=== PATIENT | male | born 1950 | race Caucasian/White ===

== ENCOUNTER 2016-07-17 17:30 | Emergency (ER) | payer MEDICARE ==
[2016-07-17 18:46] VITALS: TEMP 97.8; BMI 36.0
[2016-07-17] MEDS ORDERED: ONDANSETRON HCL 4 MG/2 ML VIAL IV ONE (18:48)
[2016-07-17] MEDS ORDERED: MORPHINE 4 MG/ML INJECTION IV ONE ×2 (18:48→20:27)
[2016-07-17] MEDS ORDERED: SODIUM CHLORIDE 0.9% 10 ML FLUSH FLUSH PRN (18:48)
--- NOTE | 2016-07-17 19:10 | EDPRACDOC ---
- General Information Chief Complaint: Ankle Pain Stated Complaint: FALL (RT LEG INJURY) Time Seen by Provider: 07/17/16 19:07 Information Source: Patient Mode of Arrival: Car Home Medications: Home Medications Aspirin (Enteric Coated) [Halfprin] 81 mg PO DAILY 10/29/14 Citalopram Hydrobromide [Celexa] 20 mg PO DAILY 10/29/14 Levetiracetam [Keppra] 500 mg PO BID 10/29/14 [place]-3 Fatty Acids/Fish Oil [Fish Oil 1,000 mg Softgel] 1 cap PO BID 10/29/14 Omeprazole 20 mg PO DAILY 10/29/14 Atenolol [Tenormin] 50 mg PO DAILY 11/07/15 Hydrochlorothiazide 25 mg PO DAILY 11/07/15 Tizanidine HCl [Zanaflex] 4 mg PO TID 11/07/15 Oxycodone Immediate Release [Oxycodone Immediate Release (OxyIR)] 5 - 15 mg PO Q4H PRN #30 tab 07/17/16 Allergies/Adverse Reactions: Allergies Allergy/AdvReac Type Severity Reaction Status Date / Time No Known Allergies Allergy Verified 07/17/16 18:45 - History of Present Illness Onset: 1430 HPI: SLIPPED AND FELL ON THE ICE, HIS RIGHT LEG FELL UNDERNEATH HIM HE LANDED ON IT WITH HIS WEIGHT IMMEDIATE PAIN AND DEFORMITY TO THE RIGHT ANKLE IT JUST POPS AROUND PATIENT LAID OUTSIDE FOR APPROXIMATELY 30 MINUTES CRAWL TO HOWEVER FOR HE FOUND HELP. PAIN IN HIS ANKLE NO PAIN IN HIS LEG KNEE HIP OR BACK. ED Past Medical History - History Reviewed Yes Nurses notes reviewed and agree except as marked - Patient Medical History Neurological History: Reports: Seizures (Last grand mall seizure over 5 years ago.) Cardiac History: Reports: Hypertension, Hypercholesterolemia Psychological History: Denies: Substance Use Disorder Systemic History: Denies: Diabetes, Hypothyroidism - Family Medical History Reports: Cancer (Sister with breast cancer, sister with bowel cancer, daughter with melanoma), Stroke (Mother at age 34 due to brain hemorrhage (details unknown).), Cardiac Disorders (Father with coronary artery disease and CHF.) - Social Medical History Smoking Status: Former smoker Social History: Denies: Substance Use Disorder ETOH: None Substance Abuse: None Lives In: Home EDM Review of Systems - Review of Systems ROS Negative Except as Marked: Yes All systems reviewed and were negative except as marked - Physical Exam Constitutional: Alert, Distress (UNCOMFORTABLE SECONDARY TO PAIN IN HIS RIGHT FOOT) Oriented to: Time, Person, Place Last recorded Vital Signs: Last Vital Signs Temp 97.8 F 07/17/16 18:45 Pulse 64 07/17/16 18:45 Resp 20 07/17/16 18:45 BP 177/83 07/17/16 18:45 Pulse Ox 96 07/17/16 18:45 Oxygen Pulse Oxygen Saturation 96 O2 Device Oxygen Flow Rate Fraction of Inspired Oxygen ( FIO2) - HEENT Head: Normal. negative: Laceration, Swelling, Tender Neck: Normal. negative: Bony Tenderness, Paraspinal Tenderness - Respiratory/Cardiovascular Respiratory: Normal - CTA Cardiovascular: Normal - GI Tenderness: Non tender - Musculoskeletal Extremities: Other (RIGHT FOOT NORMAL NONTENDER PALPATION AND FOREFOOT MIDFOOT AND HINDFOOT. DORSALIS PEDIS AND POSTERIOR TIBIALIS PULSES 2+ SENSATION IS NORMAL OVER THE LATERAL MIDDLE AND MEDIAL FOOT. RIGHT ANKLE OBVIOUS DEFORMITY SOME SOFT TISSUE SWELLING BUT NO SOFT TISSUES TENTING. TIB-FIB, KNEE, FEMUR, HIP NONTENDER PALPATION GOOD RANGE OF MOTION.) - Neurologic Memory Impaired: Normal Mood Description: Normal, Appropriate Thought: Coherent ED Procedures - Splinting 1st splint Location: RIGHT LOWER EXTREMITY Hand-Made Type: orthoglass Splint: POSTERIOR SHORT LEG Pre-Proc Neuro Vasc Exam: normal Post-Proc Neuro Vasc Exam: normal Other Devices: Crutches 2nd splint Location: R LOWER EXT Hand-Made Type: orthoglass Splint: POSTERIOR SHORT LEG - SECOND APPLICATION Pre-Proc Neuro Vasc Exam: normal Post-Proc Neuro Vasc Exam: normal Other Devices: Crutches 3rd splint Location: RIGHT LOWER EXT Hand-Made Type: orthoglass Splint: sugar-tong (SECOND APPLICATION) Pre-Proc Neuro Vasc Exam: normal Post-Proc Neuro Vasc Exam: normal - Fracture/Dislocation Reduction Informed of risks, benefits and alternatives described.: Yes Informed Consent Signed: Written Indication: Dislocation, Fracture Attempted reduction was performed: Yes Reduction Attempts: 1 Sedation performed under my direct supervision See flowsheet: Yes Intra-articular anesthetic was placed: Yes Joint Reduction Site: Other (RIGHT ANKLE) Shoulder Reduction was performed by: Traction-Counteraction (WITH HIP KNEE AND ANKLE AT 90) Post Reduction radiographs showed: Joint Reduced, Acceptable Alignment - Arthrocentesis Informed of risks, benefits and alternatives described: Yes Informed Consent Signed: Verbal Indication: Pain Control, Intra-articular Injection (LIDOCAINE WITH EPI) Prep: Chlorhexadine Prep Needle/Catheter was inserted into: Other (RIGHT ANKLE) - Results 07/17/16 19:40 07/17/16 19:40 - EKG EKG #1 EKG Time: 19:29 -: Yes EKG interpreted by me Rate: bpm: 65 [place]berg: Normal Rhythm: NSR Block: None Hypertrophy: None ST: Normal - Diagnostic Imaging Ankle Image interpreted by: , Radiologist Patient Name: WARREN TROY LOC: ED : 1950 AGE: 65 Order Date:07/17/16 Date of Service:02/23 Report # [id number] Ord Physician: Marychuy Lees MD Exam # [id number] Emergency Physician: Marychuy Lees MD Exam(s): [id number] RAD/DG ANKLE COMPLETE 3+V-R CLINICAL DATA: Status post slip and fall on the ice this evening. Right ankle injury and pain. Initial encounter. EXAM: RIGHT ANKLE - COMPLETE 3+ VIEW COMPARISON: None. FINDINGS: The patient has medial, lateral and posterior malleolar fractures. There is mild posterior and lateral subluxation of the talus at the tibiotalar joint. Soft tissue swelling is present about the ankle. Calcaneal spurring is noted. IMPRESSION: Acute medial, lateral and posterior malleolar fractures with mild posterior and lateral subluxation of the talus. Electronically Signed By: Jose Roberto Salinas M.D. On: 07/17/2016 19:30 Electronically Signed By: Jose Roberto Marin MD Electronically Signed Date/Time: [id number] Dictate Date/Time: 07/17/161927 Technologist: Doris Calvo Transcribed By: Misti Transcribed Date/Time: 07/17/161929 Leg Image interpreted by: Radiologist Patient Name: WARREN TROY LOC: ED : 1950 AGE: 65 Order Date:07/17/16 Date of Service:02/23 Report # [id number] Ord Physician: Lyric Banerjee Exam # [id number] Emergency Physician: Marychuy Lees MD Exam(s): [id number] RAD/DG TIBIA/FIBULA 2V-R CLINICAL DATA: Fell on ice this evening, lower leg pain on the right EXAM: RIGHT TIBIA AND FIBULA - 2 VIEW COMPARISON: None. FINDINGS: Mildly displaced oblique fracture distal shaft of the fibula. Moderately displaced fracture of the medial malleolus of the tibia. Mildly displaced fracture posterior malleolus suspected. Refer to report of ankle for details. IMPRESSION: Fractures of the distal tibia and fibula likely a trimalleolar fracture. Electronically Signed By: Tono Antonio M.D. On: 07/17/2016 19:31 Electronically Signed By: Tono Antonio MD Electronically Signed Date/Time: Dictate Date/Time: 07/17/161928 Technologist: Doris Calvo Transcribed By: IRINATran Transcribed Date/Time: 07/17/161930 Knee Image interpreted by: Radiologist Patient Name: WARREN TROY LOC: ED : 1950 AGE: 65 Order Date:07/17/16 Date of Service:02/23 Report # [id number] Ord Physician: Lyric Banerjee Exam # [id number] Emergency Physician: Marychuy Lees MD Exam(s): [id number] RAD/DG KNEE COMPLETE 4+V-R CLINICAL DATA: Slip and fall with right knee pain, initial encounter EXAM: RIGHT KNEE - COMPLETE 4+ VIEW COMPARISON: None. FINDINGS: No acute fracture or dislocation is noted. Prominent osteophytes are noted from the tibial tubercle. No gross soft tissue abnormality is seen. IMPRESSION: No acute abnormality noted. Electronically Signed By: Francisco Javier Anderson M.D. On: 07/17/2016 19:37 Electronically Signed By: Francisco Javier Anderson MD Electronically Signed Date/Time: Dictate Date/Time: 07/17/161933 Technologist: Doris Calvo Transcribed By: IRINATran Transcribed Date/Time: 07/17/16 1937 - Departure Disposition: Home Final Diagnosis: Trimalleolar fracture of ankle, closed Qualifiers: Encounter type: initial encounter Laterality: right Qualified Code(s): S82.851A - Displaced trimalleolar fracture of right lower leg, initial encounter for closed fracture Accidental fall Qualifiers: Encounter type: initial encounter Qualified Code(s): W19.XXXA - Unspecified fall, initial encounter Instructions: RICE: Routine Care for Injuries, Fall Prevention for Older Adults (ED), Ankle Fracture (ED) Education/Counseling Given To: Patient, Family Member Education/Counseling Given Regarding: Diagnosis, Treatment, Prognosis Referrals: Segundo Rey MD [Staff Physician] - 1-2 days Prescriptions: Oxycodone Immediate Release [Oxycodone Immediate Release (OxyIR)] 5 - 15 mg PO Q4H PRN #30 tab PRN Reason: Pain - Physician Consulted Orthopedics Time Called: 20:00 Provider Called: Segundo Rey ORTHO 2 Time Called: 22:00 Provider Called: Nilay Judd Time Business Unit Controller Returned Call: 22:00 (REDUCE AND SEND TO CLINIC) ED-Moderate Sedation Procedure - Procedure Informed of risks, benefits and alternatives described.: Yes Informed Consent Signed: Written ASA Status: 2 Procedure Type: FRACTURE REDUCTION - Patient Information Patient Age: 65 History and Physical Completed: Yes - Tag Marker Tag Marker: Yes EKG Rhythm: Sinus Rhythm - Medications Dose #1 Administration Time: 22:54 Medication Given: Propofol Dose Given: 100 Medication Unit: mg Route: IV Patient Reaction: Sleeping
--- NOTE | 2016-07-17 19:32 | DIRPT ---
CLINICAL DATA: Status post slip and fall on the ice this evening. Right ankle injury and pain. Initial encounter. EXAM: RIGHT ANKLE - COMPLETE 3+ VIEW COMPARISON: None. FINDINGS: The patient has medial, lateral and posterior malleolar fractures. There is mild posterior and lateral subluxation of the talus at the tibiotalar joint. Soft tissue swelling is present about the ankle. Calcaneal spurring is noted. IMPRESSION: Acute medial, lateral and posterior malleolar fractures with mild posterior and lateral subluxation of the talus. Electronically Signed By: Jose Roberto Salinas M.D. On: 07/17/2016 19:30
--- NOTE | 2016-07-17 19:33 | DIRPT ---
CLINICAL DATA: Fell on ice this evening, lower leg pain on the right EXAM: RIGHT TIBIA AND FIBULA - 2 VIEW COMPARISON: None. FINDINGS: Mildly displaced oblique fracture distal shaft of the fibula. Moderately displaced fracture of the medial malleolus of the tibia. Mildly displaced fracture posterior malleolus suspected. Refer to report of ankle for details. IMPRESSION: Fractures of the distal tibia and fibula likely a trimalleolar fracture. Electronically Signed By: Tono Antonio M.D. On: 07/17/2016 19:31
--- NOTE | 2016-07-17 19:40 | DIRPT ---
CLINICAL DATA: Slip and fall with right knee pain, initial encounter EXAM: RIGHT KNEE - COMPLETE 4+ VIEW COMPARISON: None. FINDINGS: No acute fracture or dislocation is noted. Prominent osteophytes are noted from the tibial tubercle. No gross soft tissue abnormality is seen. IMPRESSION: No acute abnormality noted. Electronically Signed By: Francisco Javier Anderson M.D. On: 07/17/2016 19:37
[2016-07-17 19:56] LABS: AUTOMATED BASOPHIL 0.5 % (0-2); AUTOMATED EOSINOPHIL 0.4 % (0-5); AUTOMATED MONOCYTE 5.7 % (3-10); AUTOMATED NEUTROPHIL 81.4 % (45-76); MPV 9.6 fL (7.4-10.4)
--- NOTE | 2016-07-17 21:27 | DIRPT ---
CLINICAL DATA: Post splinting right ankle fracture EXAM: PORTABLE RIGHT ANKLE - 2 VIEW COMPARISON: Films performed earlier this evening FINDINGS: No change fracture distal fibula. No change fracture medial malleolus. Mortise remains disrupted. Lateral view demonstrates no change in fracture involving posterior malleolus. There remains mild posterior and lateral subluxation of the talus at the tibiotalar joint. IMPRESSION: Unchanged trimalleolar fracture Electronically Signed By: Tono Antonio M.D. On: 07/17/2016 21:24
[2016-07-17] MEDS ORDERED: PROPOFOL 200 MG/20 ML VIAL IV ONE ×2 (22:44→23:16)
--- NOTE | 2016-07-18 00:07 | DIRPT ---
CLINICAL DATA: 65-year-old male with postreduction of the distal right lower extremity fractures. EXAM: PORTABLE RIGHT ANKLE - 2 VIEW COMPARISON: Radiograph dated 07/17/2016 FINDINGS: There has been interval reduction of the previously seen fractures of the distal fibula and medial malleolus. Near anatomic alignment. There is anatomic alignment of the ankle joint. There is soft tissue swelling of the ankle. The cast is noted over the ankle. IMPRESSION: Interval reduction of the previously seen fractures of the distal fibula and medial malleolus with anatomic alignment of the ankle joint. Electronically Signed By: Loki Wilson M.D. On: 07/18/2016 00:04
[2016-07-18 00:51] VITALS: PULSE 66
[2016-07-18 00:52] VITALS: BP 172/83
== END 2016-07-18 00:35 | disposition home or self-care (01) ==
LOC: ED 17:30
DX: S82.851A Displaced trimalleolar fracture of right lower leg, initial encounter for closed fracture (principal); W00.0XXA Fall on same level due to ice and snow, initial encounter; I10 Essential (primary) hypertension; E78.00 Pure hypercholesterolemia, unspecified; Z79.899 Other long term (current) drug therapy
CPT/HCPCS: 27818; 73564; 73590; 73600; 73610; 85025; 93005; 96374; 96375; 96376; 99152; 99284; J2270; J2405; J3490; 80048

== ENCOUNTER → 2016-07-20 | Day surgery (SDC) | payer MEDICARE ==
[2016-07-17 18:46] VITALS: BMI 36.0
[~2016-07-20] MED LIST: BUPIVACAINE 0.5% 30 ML VIAL ONE; CEFAZOLIN 1 GM VIAL ONE; DIPHENHYDRAMINE 50 MG/ML VIAL IV ONE; DIPHENHYDRAMINE 50 MG/ML VIAL ONE; FENTANYL 100 MCG/2 ML VIAL IV PRN; FENTANYL 100 MCG/2 ML VIAL ONE; HYDROmorphone 1 MG INJECTION IV PRN; HYDROmorphone 1 MG INJECTION ONE; LABETALOL 20 MG/4 ML SYRINGE IV PRN; LIDOCAINE 1% 30 ML VIAL (PRESERVATIVE FREE) ONE; MEPERIDINE 25 MG/ML TUBEX IV PRN; ONDANSETRON HCL 4 MG ODT TAB PO PRN; ONDANSETRON HCL 4 MG/2 ML VIAL IV PRN; TRIAMCINOLONE 40 MG/ML VIAL ONE; hydrALAZINE 20 MG/ML VIAL ONE
--- NOTE | 2016-07-20 13:28 | HIM.ANES ---
Anesthesia Evaluation & Plan Diagnoses: OTH FRACTURE OF RIGHT LOWER LEG, INIT FOR CLOS FX (07/20/16) Consented Procedure: OPEN REDUCTION INTERNAL FIXATION RIGHT TRIMALLEOLAR FRACTURE AND OTHE PROCEDURES INDICATED - Focused Review of Systems Cardiac History: Yes: Hx Hypertension, Hx Abnormal Cholesterol/Hyperlipidemia HEENT: Yes: Hx Hearing Impairment (WEARS HEARING AIDS), Hx Vision Problem ( WEARS GLASSES) Hx Other HEENT Surgery: NASAL SURGERY Respiratory: Yes: Hx Sleep Apnea (PT STATES HE THINKS R/T UNCONTROLLED SEIZURES. DOES NOT USE APPLIANCE), Hx Snoring Gastrointestinal: Yes: Hx Gastroesophageal Reflux Disease, Hx Colonoscopy, Hx Endoscopy Neurological/Musculoskeletal: Yes: HX Cerebrovascular Accident (10/2015), Hx Seizures (Last [place] seizure over 5 years ago.), Hx Head Trauma, Hx Back Pain Other Neurological Problems: SEIZURES Psychological: No Hx Depression, No Hx Mental/Emotional Disorders Endocrine: No: Hx Hypothyroidism Blood/Autoimmune: No: Hx AIDS, Hx Hepatitis (type) Smoking Status: Former smoker Past Social History: Denies: Substance Use Disorder Hx Stress Test (date): Yes Other Surgical History: NASAL SURGERY - Focused Physical Exam NPO since: 07/19/162029 Mallampati: Class II Thyromental Distance: Greater than 3 Neck: Full Range of Motion Dental: Removable Dental Work Cardiovascular/Chest: Normal Respiratory: Lungs clear Any problems with anesthesia, including nausea and vomiting?: No Any relatives with a history of Malignant Hyperthermia?: No Does patient have a history of Malignant Hyperthermia?: No Beta Niesha given (if appropriate): No Does the patient have a history of Motion Sickness-: No Other: Problem List Problem Status Onset Accidental fall Acute Arm paresthesia, left Acute CVA (cerebral vascular accident) Acute Hypokalemia Acute Trimalleolar fracture of ankle, closed Acute Hypercholesteremia Chronic Hypertension Chronic Allergies Allergy/AdvReac Type Severity Reaction Status Date / Time No Known Allergies Allergy Verified 07/17/16 18:45 Home Medications Medication Instructions Recorded Last Taken Type Aspirin (Enteric Coated) [Halfprin] 81 mg PO DAILY 10/29/14 07/19/16 10:00 History Citalopram Hydrobromide [Celexa] 20 mg PO DAILY 10/29/14 07/19/16 10:00 History Levetiracetam [Keppra] 500 mg PO BID 10/29/14 07/20/16 10:15 History [place]-3 Fatty Acids/Fish Oil [Fish 1 cap PO BID 10/29/14 11/09/15 08:00 History Oil 1,000 mg Softgel] Omeprazole 20 mg PO DAILY 10/29/14 07/19/16 10:00 History Atenolol [Tenormin] 50 mg PO DAILY 11/07/15 07/19/16 10:00 History Hydrochlorothiazide 25 mg PO DAILY 11/07/15 07/19/16 10:00 History Tizanidine HCl [Zanaflex] 4 mg PO DAILY 11/07/15 07/19/16 22:00 History Oxycodone Immediate Release 5 - 15 mg PO Q4H PRN #30 tab 07/17/16 07/19/16 22: 00 Rx [Oxycodone Immediate Release (OxyIR)] Height and Weight Patient's height 5 ft 7 in Patient's weight 104.326 kg BMI 36.0 Vital Signs Temperature 98.6 F 07/20/16 12:58 Pulse Rate 70 07/20/16 12:58 Respiratory Rate 18 07/20/16 12:58 Blood Pressure 162/76 07/20/16 12:58 Pulse Oxygen Saturation 95 07/20/16 12:58 METS - Level of Activity: Climbing stairs(1 flight),walking level ground, running short distance - Anesthetic Plan Anesthesia Type: General ASA Class: 3 -: I have examined this patient and reviewed the medical record. The patient has been assessed prior to anesthesia. Risks and benefits of anesthesia and anesthetic technique options have been discussed and all questions answered. The patient accepts the risk and desires me to proceed with the planned anesthetic.
--- NOTE | 2016-07-20 16:47 | HIMOPRPT ---
DATE OF PROCEDURE: 07/20/16 PREOPERATIVE DIAGNOSIS: Right ankle trimalleolar fracture dislocation. POSTOPERATIVE DIAGNOSIS: Right ankle trimalleolar fracture distal. PROCEDURE PERFORMED: Open reduction and internal fixation, right ankle lateral malleolar fracture. Open reduction internal fixation right ankle medial malleolus SURGEON: Segundo Rey MD. REVERSE ENGINEER: UNIQUE Fagan ANESTHESIA: General endotracheal Anesthesia. IV FLUIDS: Crystalloids ESTIMATED BLOOD LOSS: Minimal TOURNIQUET TIME: 100 minutes. SPECIMENS: None. COMPLICATIONS: None. IMPLANTS: [place] periarticular locking 6-hole plate for fixation of lateral malleolus. Two cannulated screws measuring 55 and 65 mm long and 5 mm in diameter were used for fixation of medial malleolus.. BRIEF HISTORY: WARREN TROY is a 65 year-old M patient. Patient had a fall on ice. He sustained a right ankle fracture dislocation and presented in the ER. He underwent closed reduction under sedation. Based on that, a decision was made for open reduction and internal fixation. The patient understood that the risks involved in surgery include infection, development of posttraumatic arthritis, DVT, pulmonary embolism, implant failure, need for further surgery, continued pain, pulmonary embolism, stroke, and even . The patient volunteered an informed consent. The patient was seen on the day of surgery in preop holding area. Surgical site was marked. The patient was then wheeled back into the operating room. DESCRIPTION OF THE PROCEDURE: The patient was placed supine on the operating table. Anesthesia was administered. Proper timeout was performed, 2 g of IV Ancef was given. Tourniquet above the knee was applied. Right lower extremity was prepped and draped. We started with percutaneous reduction of the medial malleolus and fixation with cannulated screws. Reduction was confirmed under AP and lateral C-arm images. We then placed 2 guidewires for cannulated screws 5 mm in diameter from the tip of the medial malleolus into the distal tibia. Two screws were placed 55 and 65 mm long. We then proceeded with the fixation of the lateral malleolus. Posterolateral incision was made. The fracture site was exposed. There was early callus formation at the fracture site. This callus was taken down. Both fragments were mobilized. It was a spiral fracture, which was fixed with an anterior-posterior locking lag screw. This was followed by application of a 4-hole periarticular Cristhian locking plate. This was fixed initially to the bone with a nonlocking screw. This was followed by application of both locking and nonlocking screws through the proximal and distal fragment. The tourniquet was released. Hemostasis was achieved. The wound was closed in layers. A double sugar-tong splint was applied. The patient tolerated the procedure very well and was taken to the recovery room in stable condition. DISPOSITION: The patient would be discharged home today. The patient would be nonweightbearing on the right lower extremity. The patient will follow up in the clinic in 2 weeks for removal of stitches.
[2016-07-20] MEDS: hydrALAZINE 20 MG/ML VIAL IV PRN ×3 (17:15→17:40)
[2016-07-20] MEDS: LABETALOL 20 MG/4 ML SYRINGE IV ONE ×4 (18:02→18:23)
[2016-07-20 20:09] VITALS: TEMP 98.5
[2016-07-20 20:25] VITALS: BP 173/79
[2016-07-20 20:51] VITALS: PULSE 97
== END ==
LOC: SDC 12:25
PROVIDERS: ATTEND Orthopaedic Surgery
PROC: 0QSG04Z Reposition Right Tibia with Internal Fixation Device, Open Approach (ICD-10-PCS; 2016-07-20)
PROC: 0QSJ04Z Reposition Right Fibula with Internal Fixation Device, Open Approach (ICD-10-PCS; principal; 2016-07-20 14:30)
DX: S82.851A Displaced trimalleolar fracture of right lower leg, initial encounter for closed fracture (principal); W00.0XXA Fall on same level due to ice and snow, initial encounter; E11.9 Type 2 diabetes mellitus without complications; I10 Essential (primary) hypertension; E78.5 Hyperlipidemia, unspecified; Z86.73 Personal history of transient ischemic attack (TIA), and cerebral infarction without residual deficits; Z79.82 Long term (current) use of aspirin; Z79.899 Other long term (current) drug therapy; Z87.891 Personal history of nicotine dependence
CPT/HCPCS: 27814; J0360; J0690; J1170; J1200; J3010; J3490; J2001; J3301